=== PATIENT | male | born 1995 | race Caucasian/White ===

== ENCOUNTER 2017-02-11 16:42 | Emergency (ER) | payer SELFPAY ==
--- NOTE | 2017-02-11 17:09 | Emergency Department Record ---
History of Present Illness - General Chief complaint: Burn/Smoke Inhalation Stated complaint: BURN ON R HAND Time Seen by Provider: 02/11/17 17:01 Source: Patient Mode of Arrival: Ambulatory Limitations: No limitations - History of Present Illness Initial comments: The patient had hot grease splash onto the back of the R hand at work about an hour ago. It is quite painful. His Td is UTD. The patient denies any burn to the palmar surface of the hand or fingers. MD Complaint: Burn Onset/Timin -: Hour(s) Type of Exposure: Hot liquid Smoke Inhalation: None Location: Other Associated Symptoms: Denies other symptoms - Related Data Previous Rx's Medication Instructions Recorded Acetaminop W/ Codeine 300/30Mg 1 - 2 tab PO Q6H #15 tab 02/11/17 [Tylenol #3] Allergies Allergy/AdvReac Type Severity Reaction Status Date / Time No Known Drug Allergies Allergy Verified 05/14/16 11:45 Travel Screening - Travel/Exposure Within Last 30 Days Have you traveled within the last 30 days?: No - Travel/Exposure Within Last Year Have you traveled outside the [place] in the last year?: No - Additonal Travel Details Have you been exposed to anyone with a communicable illness?: No - Travel Symptoms Symptom Screening: None Review of Systems Constitutional: Denies: Chills, Fever Past Medical History - SOCIAL HISTORY Smoking Status: Never smoker Alcohol Use: None Drug Use: None - RESPIRATORY Hx Respiratory Disorders: No - CARDIOVASCULAR Hx Cardio Disorders: No - NEURO Hx Neuro Disorders: No - GI Hx GI Disorders: No - Hx Genitourinary Disorders: No - ENDOCRINE Hx Endocrine Disorders: No - MUSCULOSKELETAL Hx Musculoskeletal Disorders: No - PSYCH Hx Psych Problems: No - HEMATOLOGY/ONCOLOGY Hx Hematology/Oncology Disorders: No Family Medical History Any Significant Family History?: No Physical Exam - General General Appearance: Alert, Cooperative, No acute distress - Head Head exam: Atraumatic, Normocephalic, Normal inspection - Eye Eye exam: Normal appearance, PERRL - Extremities Extremities exam: Full ROM, Tenderness. negative: Normal inspection (There is mild erythema to the dorsal 2nd-5th fingers and very minimally to the dorsal distal hand. There are no open wounds or blistering. There is no erythema to the palmar surface of the hand or fingers.) Image of Hand: 1 - 1st degree burn. - Neurological Neurological exam: Motor sensory deficit, Normal gait. negative: Abnormal gait Course Vital Signs 02/11/17 16:48 Temperature 98.7 F Pulse Rate 72 Respiratory 16 Rate Blood Pressure 139/103 Pulse Ox 97 - Reevaluation(s) Reevaluation #1: I did discuss the case with the patient and mother. The patient will have a burn dressing applied and will need to return to the ER in 24 hours for recheck. He also could F/U at his occupational health provider also thru work. 02/11/17 17:10 Disposition Disposition: Discharge Clinical Impression: Burn Injury Disposition: Home, Self-Care Condition: (1) Good Instructions: Superficial Burn (ED) Additional Instructions: Please keep the hand clean and dry. Take Motrin or Tylenol # 3 for pain. Please return to the ER in 24 hours for recheck and sooner if worse. You may also follow up with your work Occupational Health Provider tomorrow also. Prescriptions: Acetaminop W/ Codeine 300/30Mg [Tylenol #3] 1 - 2 tab PO Q6H #15 tab Forms: Patient Portal Access Time of Disposition: 17:13
[2017-02-11] MEDS: IBUPROFEN 600 MG TABLET PO ONE (17:11)
[2017-02-11] MEDS: SILVER SULFADIAZINE 25 GM CREAM TOP ONE (17:11)
== END 2017-02-11 17:25 | disposition home or self-care (01) ==
LOC: ER 16:42
DX: T23.141A Burn of first degree of multiple right fingers (nail), including thumb, initial encounter (principal); X10.2XXA Contact with fats and cooking oils, initial encounter; Y93.89 Activity, other specified; Y92.89 Other specified places as the place of occurrence of the external cause; Y99.0 Civilian activity done for income or pay
CPT/HCPCS: 99283

== ENCOUNTER 2017-02-12 17:36 | Emergency (ER) | payer SELFPAY ==
--- NOTE | 2017-02-12 18:17 | Emergency Department Record ---
History of Present Illness - General Chief Complaint: Recheck - Other Stated Complaint: RECHECK BURN Time Seen by Provider: 02/12/17 18:13 Source: Patient Mode of arrival: Ambulatory Limitations: No limitations - History of Present Illness Initial Comments: 21 yo male returns to ED for evaluation of a burn to the dorsum of the right hand. Patient was seen yesterday and started on Silvadene cream. Patient denies any worsening of his redness, swelling, or pain symptoms. Patient denies health problems at his baseline. MD Complaint: Wound re-check Onset/Timin -: Days(s) Initial Visit For: Burn Returns Today for: Burn recheck Symptoms Since Prior Visit: No new symptoms Associated Symptoms: None Treatments Prior to Arrival: Home treatments - Related Data Previous Rx's Medication Instructions Recorded Acetaminop W/ Codeine 300/30Mg 1 - 2 tab PO Q6H #15 tab 02/11/17 [Tylenol #3] Allergies Allergy/AdvReac Type Severity Reaction Status Date / Time No Known Drug Allergies Allergy Verified 05/14/16 11:45 Travel Screening - Travel/Exposure Within Last 30 Days Have you traveled within the last 30 days?: No Review of Systems Constitutional: Denies: Chills, Fever, Malaise, Night sweats Eyes: Denies: Eye discharge, Eye pain ENT: Denies: Congestion, Ear pain, Epistaxis Respiratory: Denies: Cough, Dyspnea Cardiovascular: Denies: Chest pain, Dyspnea on exertion Endocrine: Denies: Fatigue, Heat or cold intolerance Gastrointestinal: Denies: Abdominal pain, Nausea, Vomiting Genitourinary: Denies: Incontinence, Retention Musculoskeletal: Denies: Arthralgia, Back pain, Gout, Joint swelling Skin: Denies: Bruising, Change in color, Change in hair/nails Neurological: Denies: Abnormal gait, Confusion, Headache, Seizure Psychiatric: Denies: Anxiety Hematological/Lymphatic: Denies: Anemia, Blood Clots Past Medical History - SOCIAL HISTORY Smoking Status: Never smoker Alcohol Use: None Drug Use: None - RESPIRATORY Hx Respiratory Disorders: No - CARDIOVASCULAR Hx Cardio Disorders: No - NEURO Hx Neuro Disorders: No - GI Hx GI Disorders: No - Hx Genitourinary Disorders: No - ENDOCRINE Hx Endocrine Disorders: No - MUSCULOSKELETAL Hx Musculoskeletal Disorders: No - PSYCH Hx Psych Problems: No - HEMATOLOGY/ONCOLOGY Hx Hematology/Oncology Disorders: No Family Medical History Any Significant Family History?: No Physical Exam - General General Appearance: Alert, Oriented x3, Cooperative, No acute distress Limitations: No limitations - Head Head exam: Atraumatic, Normocephalic, Normal inspection Head exam detail: negative: Abrasion, Contusion, Lerner's sign, General tenderness, Hematoma, Laceration - Eye Eye exam: Normal appearance. negative: Conjunctival injection, Periorbital swelling, Periorbital tenderness, Scleral icterus - ENT Ear exam: negative: Auricular hematoma, Auricular trauma Nasal Exam: negative: Active bleeding, Discharge, Dried blood, Foreign body Mouth exam: negative: Drooling, Laceration, Muffled voice, Tongue elevation - Neck Neck exam: Normal inspection. negative: Meningismus, Tenderness - Respiratory Respiratory exam: Normal lung sounds bilaterally. negative: Rales, Respiratory distress, Rhonchi, Stridor - Cardiovascular Cardiovascular Exam: Regular rate, Normal rhythm, Normal heart sounds - GI/Abdominal GI/Abdominal exam: Soft. negative: Rebound, Rigid, Tenderness - Rectal Rectal exam: Deferred - exam: Deferred - Extremities Extremities exam: Other (1st degree burn (1.0 cm in diameter) over the dorsum of the left index finger, 2-3 areas over the carpal/metacarpal joints (all < 0.5 cm in diameter)). negative: Calf tenderness, Pedal edema, Tenderness - Back Back exam: Denies: CVA tenderness (R), CVA tenderness (L) - Neurological Neurological exam: Alert, Normal gait, Oriented X3 - Psychiatric Psychiatric exam: Normal affect, Normal mood - Skin Skin exam: Normal color. negative: Abrasion Type of lesion: negative: abrasion Course Vital Signs 02/12/17 17:49 Temperature 98.5 F Pulse Rate 122 H Respiratory 18 Rate Blood Pressure 121/77 Pulse Ox 95 - Reevaluation(s) Reevaluation #1: 02/12/17 18:21 Patient is well appearing on examination without evidence for any worsening of his symptoms, and appears stable for discharge at this time. Disposition Disposition: Discharge Clinical Impression: Burn Injury Disposition: Home, Self-Care Condition: (2) Stable Instructions: Superficial Burn (ED) Additional Instructions: Return to ED if your symptoms worsen or if you have any concerns. Follow-up with your family doctor in 3-5 days as directed. Continue silvadene as directed. May go back to work 02/14/16. Forms: Patient Portal Access Time of Disposition: 18:17
== END 2017-02-12 18:32 | disposition home or self-care (01) ==
LOC: ER 17:36
DX: T23.141A Burn of first degree of multiple right fingers (nail), including thumb, initial encounter (principal); X10.2XXA Contact with fats and cooking oils, initial encounter; Y93.89 Activity, other specified
CPT/HCPCS: 99282

== ENCOUNTER 2017-02-24 16:01 | Emergency (ER) | payer OTHER ==
[2017-02-24] MEDS ORDERED: ACETAMINOPHEN 500 MG TABLET PO ONE (16:19)
--- NOTE | 2017-02-24 16:20 | Emergency Department Record ---
History of Present Illness - General Chief Complaint: Headache Migraine Stated Complaint: HEADACHE,NAUSEA,CONSTIPATION Time Seen by Provider: 02/24/17 16:04 Source: Patient, RN notes reviewed Mode of Arrival: Ambulatory - History of Present Illness Initial Comments: fever and he did have a headache yesterday but the headache is gone now. Slight runny nose and sore throat and slight cough and vomited times one at 5 am today and diarrhea 2 days ago times one. body aches Onset/Timin -: Days(s) Onset Description: Gradual Location: Neck Severity scale (1-10): 6 Consistency: Constant Improves With: Nothing Worsens With: None Associated Symptoms: Nausea Treatments Prior to Arrival: None - Related Data Home Medications Medication Instructions Recorded Confirmed Last Taken No Home Med [NO HOME MEDS] 02/24/17 02/24/17 Unknown Allergies Allergy/AdvReac Type Severity Reaction Status Date / Time No Known Drug Allergies Allergy Verified 05/14/16 11:45 Travel Screening - Travel/Exposure Within Last 30 Days Have you traveled within the last 30 days?: No Review of Systems Reviewed: No additional complaints except as noted below Constitutional: Reports: As per HPI. Denies: Chills, Fever, Malaise, Night sweats, Weakness, Weight change Eyes: Reports: As per HPI. Denies: Eye discharge, Eye pain, Photophobia, Vision change ENT: Reports: As per HPI, Throat pain. Denies: Congestion, Dental pain, Ear pain, Epistaxis, Hearing loss Respiratory: Reports: As per HPI, Cough. Denies: Dyspnea, Hemoptysis, Stridor, Wheezes Cardiovascular: Reports: As per HPI. Denies: Arrhythmia, Chest pain, Dyspnea on exertion, Edema, Murmurs, Orthopnea, Palpitations, Paroxysmal nocturnal dyspnea, Rheumatic Fever, Syncope Endocrine: Reports: As per HPI. Denies: Fatigue, Heat or cold intolerance, Polydipsia, Polyuria Gastrointestinal: Reports: As per HPI, Diarrhea, Vomiting. Denies: Abdominal pain, Constipation, Hematemesis, Hematochezia, Melena, Nausea Genitourinary: Reports: As per HPI. Denies: Dysuria, Frequency, Hematuria, Incontinence, Retention, Testicular pain, Testicular mass, Urgency Musculoskeletal: Reports: As per HPI. Denies: Arthralgia, Back pain, Gout, Joint swelling, Myalgia, Neck pain Skin: Reports: As per HPI. Denies: Bruising, Change in color, Change in hair/ nails, Lesions, Pruritus, Rash Neurological: Reports: As per HPI. Denies: Abnormal gait, Confusion, Headache, Numbness, Paresthesias, Seizure, Tingling, Tremors, Vertigo, Weakness Psychiatric: Reports: As per HPI. Denies: Anxiety, Auditory hallucinations, Depression, Homicidal thoughts, Suicidal thoughts, Visual hallucinations Hematological/Lymphatic: Reports: As per HPI. Denies: Anemia, Blood Clots, Easy bleeding, Easy bruising, Swollen glands Past Medical History - SOCIAL HISTORY Smoking Status: Never smoker Alcohol Use: Rare Drug Use: None - RESPIRATORY Hx Respiratory Disorders: No - CARDIOVASCULAR Hx Cardio Disorders: No - NEURO Hx Neuro Disorders: No - GI Hx GI Disorders: No - Hx Genitourinary Disorders: No - ENDOCRINE Hx Endocrine Disorders: No - MUSCULOSKELETAL Hx Musculoskeletal Disorders: No - PSYCH Hx Psych Problems: No - HEMATOLOGY/ONCOLOGY Hx Hematology/Oncology Disorders: No Family Medical History Any Significant Family History?: No Physical Exam - General General Appearance: Alert, Oriented x3, Cooperative, No acute distress - Head Head exam: Normal inspection - Eye Eye exam: Normal appearance, PERRL Pupils: Normal accommodation - ENT ENT exam: Normal exam, Mucous membranes moist, Normal external ear exam, Normal orophraynx, TM's normal bilaterally Ear exam: Normal external inspection. negative: External canal tenderness Nasal Exam: Normal inspection. negative: Discharge, Sinus tenderness Mouth exam: Normal external inspection, Tongue normal Teeth exam: Normal inspection. negative: Dental caries Throat exam: Normal inspection, Tonsillar erythema. negative: Tonsillar exudate - Neck Neck exam: Normal inspection, Full ROM. negative: Tenderness - Respiratory Respiratory exam: Normal lung sounds bilaterally. negative: Respiratory distress - Cardiovascular Cardiovascular Exam: Regular rate, Normal rhythm, Normal heart sounds - GI/Abdominal GI/Abdominal exam: Soft, Normal bowel sounds, Tenderness (epigastric pain) - Rectal Rectal exam: Deferred - exam: Deferred - Extremities Extremities exam: Normal inspection, Full ROM, Normal capillary refill. negative: Tenderness - Back Back exam: Reports: Normal inspection, Full ROM. Denies: Muscle spasm, Rash noted, Tenderness - Neurological Neurological exam: Alert, Normal gait, Oriented X3, Reflexes normal - Psychiatric Psychiatric exam: Normal affect, Normal mood - Skin Skin exam: Dry, Intact, Normal color, Warm Course Vital Signs 02/24/17 16:05 Temperature 100.6 F H Pulse Rate 101 H Respiratory 16 Rate Blood Pressure 121/77 Pulse Ox 95 Disposition Clinical Impression: Viral syndrome Pharyngitis Qualifiers: Pharyngitis/tonsillitis etiology: unspecified etiology Qualified Code(s): J02.9 - Acute pharyngitis, unspecified Disposition: Home, Self-Care Condition: (1) Good Instructions: Pharyngitis (ED) Additional Instructions: tylenol or advil for throat pain continue to drink fluids follow up with family DRGermaine if worse or not improving in 2 days Forms: Patient Portal Access Time of Disposition: 16:24
== END 2017-02-24 16:46 | disposition home or self-care (01) ==
LOC: ER 16:01
DX: B34.9 Viral infection, unspecified (principal); J02.9 Acute pharyngitis, unspecified; R51 Headache; R11.0 Nausea
CPT/HCPCS: 87880; 99282

== ENCOUNTER 2017-02-25 17:12 | Emergency (ER) | payer OTHER ==
--- NOTE | 2017-02-25 17:51 | Emergency Department Record ---
History of Present Illness - General Chief complaint: ENT Stated complaint: VIRAL INF Time Seen by Provider: 02/25/17 17:43 Source: Patient Mode of Arrival: Ambulatory Limitations: No limitations - History of Present Illness Initial comments: 21 yo male presents with continued sore throat, congestion feeling run down since Saturday. He was seen in the ER and told he likely has a viral syndrome. He is not feeling better today and requests evaluation due to feeling to tired for work. He vomited yesterday none today. No rash. He noted some swollen glands. No abdominal pain. MD complaint: Sore throat -: Days(s) (3) Location: Throat Severity: Moderate Quality: Aching Consistency: Constant Improves with: Rest Worsens with: Swallowing Context- Ear: Recent illness Associated Symptoms: Pain with swallowing, Rhinorrhea - Related Data Previous Rx's Medication Instructions Recorded Clindamycin HCl 300 mg PO QID #28 capsule 02/25/17 Allergies Allergy/AdvReac Type Severity Reaction Status Date / Time No Known Drug Allergies Allergy Verified 02/25/17 17:46 Review of Systems Constitutional: Reports: Fever, Malaise. Denies: Chills, Weakness Eyes: Denies: Eye discharge ENT: Reports: Congestion, Throat pain. Denies: Dental pain, Ear pain, Epistaxis Respiratory: Denies: Cough, Dyspnea, Hemoptysis, Stridor, Wheezes Cardiovascular: Denies: Chest pain, Palpitations, Syncope Endocrine: Reports: Fatigue. Denies: Polydipsia, Polyuria Gastrointestinal: Reports: Nausea, Vomiting. Denies: Abdominal pain, Diarrhea Genitourinary: Denies: Dysuria, Frequency, Hematuria Musculoskeletal: Denies: Arthralgia, Back pain, Joint swelling, Myalgia Skin: Denies: Bruising, Change in color, Rash Neurological: Denies: Headache, Numbness, Vertigo, Weakness Psychiatric: Denies: Anxiety Hematological/Lymphatic: Reports: Swollen glands. Denies: Blood Clots, Easy bleeding, Easy bruising Past Medical History - SOCIAL HISTORY Smoking Status: Never smoker Drug Use: None - RESPIRATORY Hx Respiratory Disorders: No - CARDIOVASCULAR Hx Cardio Disorders: No - NEURO Hx Neuro Disorders: No - GI Hx GI Disorders: No - Hx Genitourinary Disorders: No - ENDOCRINE Hx Endocrine Disorders: No - MUSCULOSKELETAL Hx Musculoskeletal Disorders: No - PSYCH Hx Psych Problems: No - HEMATOLOGY/ONCOLOGY Hx Hematology/Oncology Disorders: No Physical Exam - General General Appearance: Alert, Oriented x3, Cooperative, No acute distress Limitations: No limitations - Head Head exam: Normal inspection - Eye Eye exam: Normal appearance. negative: Conjunctival injection, Periorbital swelling - ENT ENT exam: Mucous membranes moist, TM's normal bilaterally. negative: Normal exam, Normal orophraynx Ear exam: Normal external inspection. negative: External canal tenderness Nasal Exam: Normal inspection. negative: Discharge, Sinus tenderness Mouth exam: Normal external inspection, Tongue normal Teeth exam: Normal inspection. negative: Dental caries Throat exam: Tonsillar erythema. negative: Tonsillomegaly, Tonsillar exudate, R peritonsillar mass, L peritonsillar mass - Neck Neck exam: Normal inspection, Full ROM, Lymphadenopathy. negative: Meningismus , Tenderness - Respiratory Respiratory exam: Normal lung sounds bilaterally. negative: Respiratory distress - Cardiovascular Cardiovascular Exam: Regular rate, Normal rhythm, Normal heart sounds - GI/Abdominal GI/Abdominal exam: Soft. negative: Tenderness - Rectal Rectal exam: Deferred - exam: Deferred - Extremities Extremities exam: Normal inspection, Full ROM, Normal capillary refill. negative: Tenderness - Back Back exam: Reports: Normal inspection, Full ROM. Denies: Muscle spasm, Rash noted, Tenderness - Neurological Neurological exam: Alert, Normal gait, Oriented X3, Reflexes normal - Psychiatric Psychiatric exam: Normal affect, Normal mood. negative: Agitated, Anxious - Skin Skin exam: Dry, Intact, Normal color, Warm Course - Reevaluation(s) Reevaluation #1: The labs were reviewed No acute changes on the labs but the CBC demonstrated 15% monocytes I discussed this with the patient. I recommend follow up CBC and possible repeat Monotest in 1-2 weeks 02/25/17 18:55 Medical Decision Making - Lab Data Result diagrams: 02/25/17 18:05 02/25/17 18:05 Disposition Disposition: Discharge Clinical Impression: Pharyngitis Qualifiers: Pharyngitis/tonsillitis etiology: unspecified etiology Qualified Code(s): J02.9 - Acute pharyngitis, unspecified Disposition: Home, Self-Care Return To Work/School Note Provided: Yes Condition: (1) Good Instructions: Pharyngitis (ED), Mononucleosis (ED) Additional Instructions: Rest and stay well hydrated Return if worse, fever, vomiting, pain or concerns about dehydration Prescriptions: Clindamycin HCl 300 mg PO QID #28 capsule Forms: Patient Portal Access Time of Disposition: 18:57
[2017-02-25] MEDS ORDERED: 0.9 % SODIUM CHLORIDE 1,000 ML BAG IV ONE (18:07)
[2017-02-25 18:18] LABS: HEMATOCRIT 46.8 % (42.0-52.0); HEMOGLOBIN 15.6 gm/dl (14.0-18.0); MEAN CELL VOLUME 86.3 fl (81-97); MEAN CORPUSCULAR HEMOGLOBIN 28.8 pg (27-33); MEAN CORPUSCULAR HGB CONC 33.3 g/dl (32-36); MEAN PLATELET VOLUME 11.3 fl (7.4-10.4); PLATELET COUNT 172 K/uL (130-400); RED BLOOD COUNT 5.42 M/uL (4.40-5.70); RED CELL DISTRIBUTION WIDTH 13.1 % (11.5-14.5)
[2017-02-25 18:29] LABS: PLATELET ESTIMATE NORMAL (NORMAL)
[2017-02-25 18:34] LABS: ALB/GLOB RATIO 1.3 (1.1-1.8); ALBUMIN 4.3 gm/dL (3.5-5.0); ALKALINE PHOSPHATASE 62 U/L (38-126); ALT/SGPT 52 U/L (21-72); ANION GAP 9.6 (7-16); AST/SGOT 30 U/L (17-59); BILIRUBIN,TOTAL 0.71 mg/dL (0.2-1.3); BLOOD UREA NITROGEN 13 mg/dL (9-20); CARBON DIOXIDE 26.4 mmol/L (22-30); CREATININE 1.1 mg/dL (0.66-1.25); EST GLOMERULAR FILTRATION RATE > 60 ml/min; GLUCOSE,RANDOM 92 mg/dL (70-110); TOTAL PROTEIN 7.5 gm/dL (6.3-8.2)
[2017-02-25] MEDS ORDERED: ACETAMINOPHEN 500 MG TABLET PO ONE (19:05)
== END 2017-02-25 19:42 | disposition home or self-care (01) ==
LOC: ER 17:12
DX: J02.9 Acute pharyngitis, unspecified (principal); R13.10 Dysphagia, unspecified; R53.83 Other fatigue; R59.0 Localized enlarged lymph nodes; M54.2 Cervicalgia
CPT/HCPCS: 80053; 85027; 86308; 99283; J7030

== ENCOUNTER 2017-02-27 19:35 | Emergency (ER) | payer OTHER ==
--- NOTE | 2017-02-27 20:01 | Emergency Department Record ---
History of Present Illness - General Chief complaint: ENT Stated complaint: WHITE SPOTS IN THROAT AND FEVER Time Seen by Provider: 02/27/17 19:37 Source: Patient Mode of Arrival: Ambulatory Limitations: No limitations - History of Present Illness Initial comments: 21 yo male returns to ED with continued intermittent fevers and sore throat symptoms following evaluation in the ED 2 days ago. Patient has been taking Clindamycin for his symptoms, and mono screen performed 48 hour ago was negative. Patient continues to have intermittent elevated fevers that improve with Tylenol at home. Patient denies abdominal pain or urinary symptoms, denies neck pain, stiffness, or headache symptoms. MD complaint: Sore throat Onset/Timin -: Days(s) Location: Throat Severity: Moderate Severity scale (1-10): 8 Quality: Other Consistency: Constant Improves with: None Worsens with: None Context-Epistaxis: Other Context- Dental: Other Associated Symptoms: Fever, Sore throat - Related Data Previous Rx's Medication Instructions Recorded Clindamycin HCl 300 mg PO QID #28 capsule 02/25/17 Allergies Allergy/AdvReac Type Severity Reaction Status Date / Time No Known Drug Allergies Allergy Verified 02/25/17 17:46 Travel Screening - Travel/Exposure Within Last 30 Days Have you traveled within the last 30 days?: No - Travel/Exposure Within Last Year Have you traveled outside the [place] in the last year?: No - Additonal Travel Details Have you been exposed to anyone with a communicable illness?: No - Travel Symptoms Symptom Screening: None Review of Systems Constitutional: Reports: Fever. Denies: Chills, Malaise Eyes: Denies: Eye discharge, Eye pain ENT: Reports: Throat pain. Denies: Dental pain, Ear pain, Epistaxis Respiratory: Denies: Cough, Dyspnea Cardiovascular: Denies: Chest pain, Dyspnea on exertion Endocrine: Denies: Fatigue, Heat or cold intolerance Gastrointestinal: Denies: Nausea, Vomiting Genitourinary: Denies: Incontinence, Retention Musculoskeletal: Denies: Arthralgia, Back pain, Gout, Joint swelling Skin: Denies: Bruising, Change in color Neurological: Denies: Abnormal gait, Confusion, Headache, Seizure Psychiatric: Denies: Anxiety Hematological/Lymphatic: Denies: Anemia, Blood Clots Past Medical History - SOCIAL HISTORY Smoking Status: Never smoker Alcohol Use: None Drug Use: None - RESPIRATORY Hx Respiratory Disorders: No - CARDIOVASCULAR Hx Cardio Disorders: No - NEURO Hx Neuro Disorders: No - GI Hx GI Disorders: No - Hx Genitourinary Disorders: No - ENDOCRINE Hx Endocrine Disorders: No - MUSCULOSKELETAL Hx Musculoskeletal Disorders: No - PSYCH Hx Psych Problems: No - HEMATOLOGY/ONCOLOGY Hx Hematology/Oncology Disorders: No Family Medical History Any Significant Family History?: No Hx Cancer: Grandparents *Cancer Comment: Brain Hx Liver Disease: Grandparents Physical Exam - General General Appearance: Alert, Oriented x3, Cooperative, No acute distress Limitations: No limitations - Head Head exam: Atraumatic, Normocephalic, Normal inspection Head exam detail: negative: Abrasion, Contusion, Lerner's sign, General tenderness, Hematoma, Laceration - Eye Eye exam: Normal appearance. negative: Conjunctival injection, Periorbital swelling, Periorbital tenderness, Scleral icterus - ENT Ear exam: negative: Auricular hematoma, Auricular trauma Nasal Exam: negative: Active bleeding, Discharge, Dried blood, Foreign body Mouth exam: negative: Drooling, Laceration, Muffled voice, Tongue elevation Throat exam: Tonsillar erythema, Tonsillar exudate, Other (Lesions present to the posterior pharynx, no evidence for peritonsillar abscess on examination). negative: Tonsillomegaly, R peritonsillar mass, L peritonsillar mass - Neck Neck exam: Normal inspection. negative: Meningismus - Respiratory Respiratory exam: Normal lung sounds bilaterally. negative: Rales, Respiratory distress, Rhonchi, Stridor - Cardiovascular Cardiovascular Exam: Regular rate, Normal rhythm, Normal heart sounds - GI/Abdominal GI/Abdominal exam: Soft. negative: Rebound, Rigid, Tenderness - Rectal Rectal exam: Deferred - exam: Deferred - Extremities Extremities exam: Normal inspection. negative: Calf tenderness, Pedal edema, Tenderness - Back Back exam: Denies: CVA tenderness (R), CVA tenderness (L) - Neurological Neurological exam: Alert, Normal gait, Oriented X3 - Skin Skin exam: Normal color. negative: Abrasion Type of lesion: negative: abrasion Course Vital Signs 02/27/17 02/27/17 19:42 19:48 Temperature 100.2 F H Pulse Rate 102 H Respiratory 20 Rate Blood Pressure 125/69 Pulse Ox 96 - Reevaluation(s) Reevaluation #1: 02/27/17 20:40 Labs reviewed and are grossly unremarkable for an acute process. Patient and family were updated on all results, is well appearing, and stable for discharge at this time. Medical Decision Making - Lab Data Result diagrams: 02/27/17 20:00 02/27/17 20:00 Disposition Disposition: Discharge Clinical Impression: Pharyngitis Qualifiers: Pharyngitis/tonsillitis etiology: unspecified etiology Qualified Code(s): J02.9 - Acute pharyngitis, unspecified Disposition: Home, Self-Care Condition: (2) Stable Instructions: Pharyngitis (ED) Additional Instructions: Return to ED if your symptoms worsen or if you have any concerns. Continue Clindamycin as directed. Follow-up with your family doctor in 3-5 days as directed. Forms: Patient Portal Access Time of Disposition: 20:43
[2017-02-27 20:09] LABS: HEMATOCRIT 45.4 % (42.0-52.0); HEMOGLOBIN 15.3 gm/dl (14.0-18.0); MEAN CELL VOLUME 84.1 fl (81-97); MEAN CORPUSCULAR HEMOGLOBIN 28.3 pg (27-33); MEAN CORPUSCULAR HGB CONC 33.7 g/dl (32-36); PLATELET COUNT 160 K/uL (130-400); RED CELL DISTRIBUTION WIDTH 12.5 % (11.5-14.5); WHITE BLOOD COUNT W/O DIFF 6.9 K/uL (4.2-12.2)
[2017-02-27 20:22] LABS: ALB/GLOB RATIO 1.2 (1.1-1.8); ALKALINE PHOSPHATASE 59 U/L (38-126); ALT/SGPT 42 U/L (21-72); ANION GAP 11.3 (7-16); AST/SGOT 23 U/L (17-59); BILIRUBIN,TOTAL 0.67 mg/dL (0.2-1.3); BLOOD UREA NITROGEN 14 mg/dL (9-20); CARBON DIOXIDE 23.7 mmol/L (22-30); CREATININE 1.1 mg/dL (0.66-1.25); EST GLOMERULAR FILTRATION RATE > 60 ml/min; GLUCOSE,RANDOM 126 mg/dL (70-110); TOTAL PROTEIN 7.3 gm/dL (6.3-8.2)
[2017-02-27 20:26] LABS: URINE APPEARANCE CLEAR; URINE BILIRUBIN SMALL (NEGATIVE); URINE BLOOD MODERATE (NEGATIVE); URINE COLOR YELLOW; URINE GLUCOSE (UA) NEGATIVE (NEGATIVE); URINE KETONE 40 mg/dL (NEGATIVE); URINE LEUKOCYTE ESTERASE NEGATIVE (NEGATIVE); URINE NITRITE NEGATIVE (NEGATIVE); URINE UROBILINOGEN 0.2 E.U./dL (0.20 - 1.00)
[2017-02-27 20:39] LABS: URINE AMORPHOUS SEDIMENT 2+; URINE MUCUS MODERATE
== END 2017-02-27 21:10 | disposition home or self-care (01) ==
LOC: ER 19:35
DX: J02.9 Acute pharyngitis, unspecified (principal); R50.81 Fever presenting with conditions classified elsewhere
CPT/HCPCS: 80053; 81001; 85027; 86308; 99283